=== PATIENT | female | born 1985 | race Two or more races ===

== ENCOUNTER 2018-04-26 13:04 | Inpatient (IN) | payer OTHER ==
[~2018-04-26] VITALS: Ht 160 cm; Wt 95.3 kg
[2018-05-03] MEDS ORDERED: SYNTHROID50 MCG PO (13:26)
[2018-05-03] MEDS ORDERED: PRENATAL TABLE1 EAC2 PO (13:26)
== END 2018-05-05 13:54 | DRG 807 ==
LOC: SURG-SUITE 05-03 06:21 → LDR 05-03 06:21 → SURG-SUITE 05-04 01:43 → LDR 05-05 13:15 → SURG-SUITE 05-05 13:54
PROVIDERS: ADMIT Obstetrics & Gynecology
PROC: 10E0XZZ Delivery of Products of Conception, External Approach (ICD-10-PCS; principal; 2018-05-04)
PROC: 4A1HXCZ Monitoring of Products of Conception, Cardiac Rate, External Approach (ICD-10-PCS; 2018-05-04)
DX: O80 Encounter for full-term uncomplicated delivery (principal); Z37.0 Single live birth; Z3A.39 39 weeks gestation of pregnancy